=== PATIENT | female | born 2000 | race Caucasian/White ===

== ENCOUNTER 2020-05-19 10:12 | Outpatient (CLI) | payer BC, SELFPAY ==
--- NOTE | ~2020-05-19 | XR_ITS ---
EXAMINATION: XR shoulder RT min 2V DATE: 05/19/2020 10:37 INDICATION: Right shoulder pain. TECHNIQUE: 4 views of right shoulder were obtained. COMPARISON: None. FINDINGS: Bone alignment is normal. No fracture. Joint spaces are normal. IMPRESSION: 1. Normal right shoulder. Reviewed, dictated and finalized at location A. H SCIENCES PROFESSOR IMPRESSION: 1. Normal right shoulder.
== END 2020-05-19 10:13 | disposition home or self-care (01) ==
PROVIDERS: PCP Internal Medicine; Visit Provider Internal Medicine
DX: M25.511 Pain in right shoulder (principal)
CPT/HCPCS: 73030

== ENCOUNTER 2020-05-23 08:09 | Outpatient (CLI) | payer BC, SELFPAY ==
--- NOTE | ~2020-05-23 | XR_ITS ---
XR wrist RT w scaphoid 05/23/2020 08:27 Indication: Chronic right wrist pain Procedure: 5 views right wrist Comparison: No prior studies for comparison. Findings: No fracture or traumatic malalignment. Normal anatomic alignment. Scaphoid within normal li mits. No foreign bodies. Normal anatomic alignment. Impression: 1: No acute fracture. Reviewed, dictated and finalized at location A. ICAL PHARMACIST Impression: 1: No acute fracture.
== END 2020-05-23 08:10 | disposition home or self-care (01) ==
LOC: ANHIMG 08:13
PROVIDERS: PCP Internal Medicine; Visit Provider Surgery Plastic and Reconstructive Surgery
DX: M25.531 Pain in right wrist (principal)
CPT/HCPCS: 73110

== ENCOUNTER 2020-05-30 15:00 | Outpatient (CLI) | payer BC, SELFPAY ==
--- NOTE | ~2020-05-30 | US_ITS ---
EXAMINATION: US joint non vasc comp RT DATE: 05/30/2020 15:30 INDICATION: Mass at the lateral right shoulder TECHNIQUE: Multiple grayscale and Doppler ultrasound images of the region of concern at the lateral r ight shoulder were obtained. COMPARISON: Radiographs dated 05/19/2020 FINDINGS: Normal appearance to the subcutaneous fat and underlying musculature at the region of concern. No abn ormal mass or fluid collections identified. IMPRESSION: 1. No abnormal masses, fluid collections or other etiology identified for reported palpable abnormali ty at the lateral right shoulder. Reviewed, dictated and finalized at location A. ATRIC CLINICAL DIETICIAN IMPRESSION: 1. No abnormal masses, fluid collections or other etiology identified for repor shayla palpable abnormality at the lateral right shoulder.
== END 2020-05-30 15:01 | disposition home or self-care (01) ==
PROVIDERS: PCP Internal Medicine; Visit Provider Internal Medicine
DX: R22.41 Localized swelling, mass and lump, right lower limb (principal)
CPT/HCPCS: 76881

== ENCOUNTER 2020-06-18 00:56 | Outpatient (CLI) | payer BC, SELFPAY ==
[2020-06-18 18:59] LABS: SARS-CoV-2 RNA PCR Negative
== END 2020-06-18 00:57 | disposition home or self-care (01) ==
LOC: ANHCOVIDDT 00:56
PROVIDERS: PCP Internal Medicine; Visit Provider Surgery Plastic and Reconstructive Surgery
DX: Z01.812 Encounter for preprocedural laboratory examination (principal); Z20.828 Contact with and (suspected) exposure to other viral communicable diseases
CPT/HCPCS: 87635; C9803; U0003

== ENCOUNTER 2020-06-21 01:53 | Day surgery (SDC) | payer BC, SELFPAY ==
[2020-06-10 14:56] VITALS: BMI 22.3
[2020-06-21 12:45] VITALS: BP 132/74; PULSE 75; RESP 14; TEMP 36.7; O2SAT 100
[2020-06-21 13:05] VITALS: BMI 22.1
--- NOTE | 2020-06-21 13:23 | SUR.PREOP ---
1315; DURING IV START. PT BECAME DIAPHORETIC AND FAINTED. HOB FLAT, PT COMFORTED. IVF WIDE OPEN. PT THEN AWAKE AND ALERT. RESP EVEN UNLABORED. PT PALE. 1320; DR JACOBS AT BEDSIDE. INFORMED PT FAINTED DURING IV INSERTION. PT STATES SHE FEELS FINE NOW.
--- NOTE | 2020-06-21 13:23 | WPDANESEPPF ---
Anes - Initial Pre Proc Eval Procedure: Operation Date: 06/21/20 14:30 Proposed Procedures p Excision Ganglion Cyst Right Dorsal Wrist - Duncan Garsia MD Date/Time: 06/21/20 13:23 Surgeon: Duncan Garsia MD Pre Op Diagnosis: ganglion cyst right dorsal wrist Patient Data Age: 19 Gender: F Height: 1.7 m Weight: 64.63 kg Allergies Allergy/AdvReac Type Severity Reaction Status Date / Time No Known Allergies Allergy Verified 06/21/20 13:06 Home Medications Medication Instructions Recorded Confirmed Type sertraline 100 mg tablet 100 mg PO DAILY 05/19/20 06/21/20 History docusate sodium 100 mg capsule 100 mg PO BID 7 Days #14 cap 06/15/20 Rx hydrocodone 5 mg-acetaminophen 325 1 tablet PO Q6H PRN #15 tablet 06/15/20 06/15/20 Rx mg tablet ondansetron HCl 4 mg tablet 4 mg PO Q6H PRN #30 tablet 06/15/20 Rx Patient hx anesthesia problems: none Family hx anesthesia problems: none PMFSH Past Medical History Medical History BMI 22.0-22.9, adult Encounter for routine adult health examination with abnormal findings Encounter to establish care Exposure to COVID-19 virus Ganglion cyst of dorsum of right wrist Mass of shoulder region Right shoulder pain Family History Family History Grandparent Family history of thyroid disease Hypertension Family history of arthritis Family history of malignant neoplasm of breast Mother Family history of thyroid disease Father Hypertension Social History Social History Smoking status: Never smoker Alcohol intake: current Living arrangements: alone Gender identity (if verbalized by the patient): Female Spiritual care concerns: No Anes - Eval Final PreProcedure Day of Procedure 06/21/20 13:23 Patient weight: normal Heart: regular rate and rhythm Lungs: clear to auscultation and normal air movement Airway: Mallampati scale class II Neurological: alert and oriented Last oral intake: >/= 8 hours ASA classification: II Emergent: no Anesthetic plan: proceed Anesthesia type and monitoring: general GIVS and standard monitoring Informed Consent: The patient's anesthetic plan and its attendant risks and benefits were discussed with the patient/family/POA. Questions were solicited and answers provided to the satisfaction of the patient/family/POA.
[2020-06-21] MEDS: LACTATED RINGERS 1,000 ML 30 ML IV CONT (13:27)
--- NOTE | 2020-06-21 13:39 | SUR.PREOP ---
PT AWAKE AND ALERT. IV SLOWED DOWN. HOB ELEVATED. PT STATES SHE FEELS FINE. PT P,W,D.
--- NOTE | 2020-06-21 14:51 | SUR.PREOP ---
PT UPDATED. DR MYERS DELAYED 1 HOUR.
--- NOTE | 2020-06-21 14:54 | WPDHPUPDATE1 ---
History and Physical Update Update Date/Time: 06/21/20 14:54 History and Physical has been reviewed, including an updated exam of the patient. There are NO changes in the patient's condition. Risks, benefits, and alternatives have been discussed and questions answered. Patient agrees to proceed with procedure.
--- NOTE | 2020-06-21 15:17 | PM.PROC ---
Procedure Note - Detailed Date of procedure: 06/21/20 Pre-op diagnosis: ganglion cyst right dorsal wrist Post-op diagnosis: same Procedure performed: Excision right dorsal wrist ganglion Description of procedure: Patient was marked in the preoperative holding area with her verification. She was taken to the operating room placed supine on the operating room table. Anesthesia was provided by anesthesiology and prepped and draped in standard sterile fashion. Surgical time-out was taken. 1% lidocaine and 0.25% Marcaine with epinephrine was used anesthetize locally in Esmarch was used to exsanguinate the arm. Tourniquet inflated to 250 mmHg. A 15 blade used to make an incision directly over the mass. Dissection was continued down until the mass was identified. I followed this to the joint space and was completely removed. Tourniquet was released and a verified hemostasis. I closed with 5 0 nylon. Xeroform fluffs Elie and an Han were used for final dressing. She was awoke and taken to the PACU without difficulty. All instrument sponge counts were correct at the end of the case. Anesthesia: GLMA Surgeon: Duncan Garsia MD Estimated blood loss (mL): 5 Drains: No Packing: No Pathology: yes (Ganglion cyst) Complications: No immediate complications Condition: stable Disposition: PACU Findings: Right dorsal wrist mass/ synovitis. No evidence of neurovascular, tendon, or ligamentous injury.
[2020-06-21] MEDS: ceFAZolin 2 GM/D5W 50 ML 2 GM/50 ML BAG IVPB (15:43)
[2020-06-21] MEDS: KETOROLAC 30 MG/ML VIAL (*BKC) IV PUSH (16:05)
[2020-06-21] MEDS: LIDO 1%/EPINEPHRINE 1:100,000 20 ML VIAL 5 ML INFILTRATE (16:05)
[2020-06-21 16:18] VITALS: BP 101/59; PULSE 86; RESP 20
[2020-06-21 16:45] VITALS: BP 99/46; PULSE 78; RESP 20
[2020-06-21 17:15] VITALS: BP 104/56; PULSE 56; RESP 20
== END 2020-06-21 17:25 | disposition home or self-care (01) ==
PROVIDERS: PCP Internal Medicine; Visit Provider Surgery Plastic and Reconstructive Surgery
PROC: (CPT 25111; principal; 2020-06-21 14:30)
DX: M67.431 Ganglion, right wrist (principal)
CPT/HCPCS: 25111; 88304; 88305; J0690; J1885; J2250; J2405; J2704; J3010; J7120

== ENCOUNTER 2020-10-14 14:43 | Emergency (ER) | payer BC, SELFPAY ==
--- NOTE | 2020-10-14 14:44 | ED.GENADULT ---
HPI - General Adult General Chief complaint: Upper Respiratory Infection Stated complaint: Strep test Time Seen by Provider: 10/14/20 14:44 Source: patient Mode of arrival: ambulatory Limitations: no limitations History of Present Illness HPI narrative: 19-year-old female patient presents to the [facility] with complaints of sore throat for the past 3 days. Denies fever, body aches or chills. Patient states she has had a little bit of a runny nose. 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 Denies needing any Covid testing today. Related Data Home Medications Medication Instructions Recorded Confirmed sertraline 100 mg tablet 100 mg PO DAILY 05/19/20 06/21/20 Allergies Allergy/AdvReac Type Severity Reaction Status Date / Time No Known Allergies Allergy Verified 07/04/20 07:32 Review of Systems Review of Systems: Narrative: CONSTITUTIONAL: Denies fever, chills, or sweats. EYES: Denies visual changes, redness, or discharge. ENT: Denies rhinorrhea, congestion, positive sore throat, denies otalgia. CARDIOVASCULAR: Denies chest pain, palpitations, or edema. RESPIRATORY: Denies cough or dyspnea. GASTROINTESTINAL: Denies abdominal pain, nausea, vomiting, or diarrhea. GENITOURINARY: Denies dysuria or hematuria. SKIN: Denies rash or itching. MUSCULOSKELETAL: Denies back pain, joint pain, or myalgia. NEUROLOGIC: Denies headache, numbness, or weakness. PSYCHIATRIC: Denies anxiety or depression. [facility] Past Medical History Medical History BMI 22.0-22.9, adult Encounter for routine adult health examination with abnormal findings Encounter to establish care Exposure to COVID-19 virus Ganglion cyst of dorsum of right wrist Mass of shoulder region Right shoulder pain Family History Family History Grandparent Family history of thyroid disease Hypertension Family history of arthritis Family history of malignant neoplasm of breast Mother Family history of thyroid disease Father Hypertension Social History Social History Smoking status: Never smoker Alcohol intake: current Gender identity (if verbalized by the patient): Female Spiritual care concerns: No Comments At the time of my signature I agree with nursing past medical history, surgical, social, and family history. There is no relevant family history pertinent to the presenting complaint. Exam Narrative: Exam Narrative: GENERAL: Well-appearing, well-nourished, and in no acute distress. HEAD: Normocephalic, atraumatic. EYES: PERRLA and EOMI. ENT: Nares clear, no rhinorrhea or epistaxis. Mucous membranes moist. Posterior pharynx with some postnasal drip present. No erythema, tonsil enlargement or exudates or lesions are present. Bilateral TMs are clear no erythema or foreign bodies in the canal. NECK: Supple. No lymphadenopathy CHEST: Clear to auscultation. No respiratory distress. HEART: Regular rate and rhythm. No murmur heard. Normal peripheral pulses. ABDOMEN: Soft, nontender, nondistended, normal active bowel sounds. EXTREMITIES: Normal range of motion. No edema. SKIN: Warm, dry, no rash. NEURO: No focal deficits. Alert and oriented x3. Course Vital Signs Vital signs: Vital signs reviewed Medical Decision Making Differential Diagnosis Differential Diagnosis: Differential diagnosis: Viral pharyngitis, pharyngitis, group A strep, infectious mononucleosis, gonococcal pharyngitis, exudative pharyngitis, oral candidiasis. Chronic allergies, postnasal drip, GERD, abscess formation, but glottitis, retropharyngeal abscess formation, or airway obstruction. Notify patient that her rapid strep test today is negative. Discussed with patient and offered her Covid testing however she is declined at this time stating that she gets Covid
[2020-10-14 14:50] VITALS: BP 136/89; PULSE 82; RESP 16; TEMP 37.1; O2SAT 100
== END 2020-10-14 15:20 | disposition home or self-care (01) ==
PROVIDERS: Emergency Provider Nurse Practitioner Family; PCP Internal Medicine
DX: J02.9 Acute pharyngitis, unspecified (principal); F41.9 Anxiety disorder, unspecified
CPT/HCPCS: 87081; 87880; 99213; G0463

== ENCOUNTER 2021-02-28 09:25 | Outpatient (CLI) | payer BC, SELFPAY ==
--- NOTE | ~2021-02-28 | XR_ITS ---
EXAMINATION: XR foot LT min 3V DATE: 02/28/2021 09:52 INDICATION: Left foot pain TECHNIQUE: Dorsoplantar, lateral, and 2 oblique views of the left foot were obtained. COMPARISON: None. FINDINGS: There is mild dorsal soft tissue swelling of the foot. Bone alignment is normal. There is n o fracture. Joint spaces are normal. IMPRESSION: 1. Soft tissue swelling without acute osseous abnormality. Reviewed, dictated and finalized at location A.
== END 2021-02-28 09:26 | disposition home or self-care (01) ==
PROVIDERS: PCP Internal Medicine; Visit Provider Internal Medicine
DX: M79.672 Pain in left foot (principal); M79.89 Other specified soft tissue disorders
CPT/HCPCS: 73630

== ENCOUNTER 2021-07-02 10:26 | Outpatient (CLI) | payer BC, SELFPAY ==
--- NOTE | ~2021-07-02 | MR_ITS ---
EXAMINATION: MR brain IAC wo/w con DATE: 07/02/2021 11:57 INDICATION: Dizziness and giddiness. TECHNIQUE: Magnetic resonance imaging (MRI) of the brain, brainstem, and internal auditory canals was performed without and with 15 mL MultiHance intravenous contrast. Sequences included sagittal and ax ial T1-weighted FSE, axial diffusion-weighted FS EPI, axial T2*-weighted GRE, axial T2-weighted FLAIR Propeller, axial T2-weighted Propeller, small ajqth-sm-syoh coronal FIESTA, small kqowb-nh-offg bharat nal T1-weighted FSE, and small xstrs-fx-jakl axial T1-weighted SPGR. Postcontrast sequences included axial T1-weighted FSE, small mwihw-yd-aklt coronal T1-weighted FSE, and small rrizz-id-sfto axial T1- weighted SPGR. Apparent diffusion coefficient (ADC) maps were created. COMPARISON: None. FINDINGS: There is no intracranial hemorrhage, acute infarction, or abnormal intracranial mass lesion . The ventricles are normal in size. The internal auditory canals and inner and middle ears are elton l. The mastoid air cells are normal. There is mild mucosal thickening in the ethmoid sinuses. The orb its are normal. IMPRESSION: 1. Normal brain. Reviewed, dictated and finalized at location A. STRIAL ENGINEERING TECHNOLOGIST IMPRESSION: 1. Normal brain.
[2021-07-02 11:11] LABS: Estimated Glomerular Filt Rate > 60
== END 2021-07-02 10:27 | disposition home or self-care (01) ==
LOC: ANHIMG 10:37
PROVIDERS: PCP Internal Medicine; Visit Provider Internal Medicine
DX: R42 Dizziness and giddiness (principal); R55 Syncope and collapse
CPT/HCPCS: 70553; A9577

== ENCOUNTER → 2022-09-19 13:46 | Outpatient (CLI) | payer BC, SELFPAY ==
--- NOTE | ~2022-09-19 | US_ITS ---
Pelvic ultrasound. Clinical History: Pelvic pain Technique: Realtime transabdominal scanning of the pelvis was performed. Color flow Doppler and Doppl er spectral analysis were performed. Findings: The uterus is anteverted. The endometrial stripe has a thickness of 8 mm. No focal mass is identified. The right ovary measures 3.1 x 2.2 x 2.5 cm. No significant right ovarian or adnexal mass is seen. The left ovary measures 3.2 x 1.7 cm. No significant left ovarian or adnexal mass is seen. There is no evidence of free fluid in the cul de sac. Impression: Unremarkable pelvic ultrasound. Reviewed, dictated and finalized at location . Impression: Unremarkable pelvic ultrasound.
== END ==
PROVIDERS: PCP Advanced Practice Midwife; Visit Provider Advanced Practice Midwife
DX: R10.2 Pelvic and perineal pain (principal)
CPT/HCPCS: 76856

== ENCOUNTER → 2023-03-29 12:53 | Outpatient (CLI) | payer BC, SELFPAY ==
--- NOTE | ~2023-03-29 | US_ITS ---
EXAMINATION: US OB <= 14 weeks fetus DATE: 03/29/2023 13:27 INDICATION: Size greater than dates, first trimester TECHNIQUE: Real-time pelvic transabdominal and transvaginal ultrasound was performed. COMPARISON: None. FINDINGS: The uterus measures 13.1 x 8.1 x 9.9 cm. There is an intrauterine gestational sac. A yolk s ac is identified. heart motion is identified measuring 159 beats per minute (bpm) by M-mode Dop pler. The crown rump length measures 4.6 cm, which correlates with an estimated gestational age of 11 weeks and 3 day(s) (+/-) 7 day(s). The right ovary measures 3.7 x 2.8 x 2.4 cm. The left ovary measures 3.4 x 1.6 x 2.0 cm. There is nor mal vascular flow in the ovaries. There is no free fluid in the pelvis. IMPRESSION: 1. Live intrauterine with an estimated gestational age of 11 weeks and 3 day(s) (+/-) 7 day (s) and an estimated delivery date of 10/14/2022. Reviewed, dictated and finalized at location F. IMPRESSION: 1. Live intrauterine with an estimated gestational age of 11 weeks an d 3 day(s) (+/-) 7 day(s) and an estimated delivery date of 10/14/2022.
== END ==
PROVIDERS: PCP Advanced Practice Midwife; Visit Provider Advanced Practice Midwife
DX: O36.63X0 Maternal care for excessive fetal growth, third trimester, not applicable or unspecified (principal)
CPT/HCPCS: 76801

== ENCOUNTER 2023-08-05 15:16 | Outpatient (CLI) | payer OTHER, SELFPAY ==
--- NOTE | ~2023-08-05 | US_ITS ---
EXAMINATION: US OB follow up DATE: 08/05/2023 15:37 INDICATION: Expected size greater than expected for estimated gestational age TECHNIQUE: Real-time ultrasound of the pelvis was performed. The interpreting radiologist was not pre sent for the study. COMPARISON: None. FINDINGS: There is a single living fetus in vertex presentation. The placenta is posterior and not low-lying. heart rate is 142 beats per minute (bpm). The amniotic fluid index is 16.9 cm, which is normal (5th%-95%: 9.2-23.1 cm at 29 weeks estimated gestational age). Cervical length measures approximatel y 4.8 cm. The following biometric data were obtained: BPD: 7.3 cm -> 29 weeks 2 days Head circumference: 28.7 cm -> 31 weeks 4 days Abdominal circumference: 26.2 cm -> 30 weeks 2 days Femur length: 5.6 cm -> 29 weeks 4 days These measurements are concordant. Head circumference to abdominal circumference ratio: 1.10 (normal range 0.97-1.19). Estimated weight: 2509 g (+/-) 226 g or 3 lbs. 5 oz. (+/-) 8 oz. IMPRESSION: 1. Single living fetus in vertex presentation with heart rate of 142 bpm. 2. Normal amniotic fluid index of 16.9 cm. 3. Estimated weight is 45th percentile by Hadlock criteria when 10/15/2023 is used as the estima shayla date of delivery (AZEEM). Please correlate with clinical information or earlier ultrasounds for mos t accurate AZEEM. Reviewed, dictated and finalized at location A. TECH IMPRESSION: 1. Single living fetus in vertex presentation with heart rate of 142 bpm. 2. Normal amniotic fluid index of 16.9 cm. 3. Estimated weight is 45th percentile by Hadlock criteria when 10/15/2023 is used as the estimated date of delivery (AZEEM). Please correlate with clinica l information or earlier ultrasounds for most accurate AZEEM.
== END 2023-08-05 15:17 ==
PROVIDERS: PCP Advanced Practice Midwife; Visit Provider Advanced Practice Midwife
DX: O36.63X0 Maternal care for excessive fetal growth, third trimester, not applicable or unspecified (principal); Z3A.00 Weeks of gestation of pregnancy not specified
CPT/HCPCS: 76816

== ENCOUNTER 2023-09-12 16:24 | Outpatient (CLI) | payer OTHER, SELFPAY ==
[2023-09-12] VITALS (8 sets, daily range): BP systolic 136–159; BP diastolic 84–101; PULSE 69–80; BMI 33.1
[2023-09-12 17:10] LABS: Basophils Percent Auto 0.1 % (0.2-1.2); Eosinophils Absolute Auto 0.1 K/mm3 (0-0.3); Eosinophils Percent Auto 0.7 % (0-4.4); Hematocrit 37.1 % (37.0-47.0); Hemoglobin 12.5 g/dL (12.0-15.0); Immature Granulocyte Absolute 0.09 K/mm3 (0.00-0.031); Immature Granulocyte Percent A 0.7 % (0-0.5); Lymphocytes Absolute Auto 3.31 K/mm3 (0.9-3.2); Lymphocytes Percent Auto 24.2 % (18.3-44.2); Mean Corpuscular HGB Conc 33.7 g/dl (32-36); Mean Corpuscular Hemoglobin 30.3 pg (26-34); Mean Corpuscular Volume 89.8 fl (80-100); Mean Platelet Volume 10.5 fl (7.4-10.4); Monocytes Absolute Auto 1.4 K/mm3 (0.1-0.6); Monocytes Percent Auto 10.3 % (2.6-8.5); Neutrophils Absolute Auto 8.7 K/mm3 (1.3-6.7); Platelet Count Result 260 k/mm3 (150-375); Red Blood Count 4.13 M/mm3 (4.2-5.4); Red Cell Distribution Width 12.2 % (11.5-14.5); White Blood Count 13.7 K/mm3 (4.5-10.0)
[2023-09-12 17:21] LABS: Alanine Aminotransferase 15 U/L (6-35); Albumin Level 3.5 g/dL (3.5-5.1); Alkaline Phosphatase 261 U/L (38-126); Anion Gap 4 mmol/L (8-16); Aspartate Amino Transferase 19 U/L (14-36); Bilirubin,Total 0.5 mg/dL (0.2-1.3); Blood Urea Nitrogen 9 mg/dL (7-17); Calcium 9.4 mg/dL (8.4-10.2); Carbon Dioxide 22 mmol/L (22-30); Chloride 107 mmol/L (98-107); Estimated Glomerular Filt Rate > 60; Glucose 95 mg/dL (65-110); Potassium 3.7 mmol/L (3.4-5.0); Sodium 133 mmol/L (137-145); Uric Acid 4.1 mg/dL (2.5-7.5)
[2023-09-12 17:22] LABS: Creatinine Urine 85.7 mg/dL; Total Protein Urine Random 28 mg/dL; Ur Ttl Prot Creatinine Ratio 0.33 mg/mg (0-0.20)
[2023-09-12 17:23] LABS: Appearance Urine Cloudy (Clear); Bacteria Urine 1+ /hpf; Bilirubin Urine Negative (Negative); Blood Urine Negative (Negative); Color Urine Yellow (Yellow); Glucose Urine UA Negative (Negative); Ketones Urine Negative (Negative); Leukocyte Esterase Ur 1+ LEU/UL (Negative); Need Manual Microscopic Reviewed; Nitrate Urine Negative (Negative); Non Pathogenic Casts 0-2; Protein Urine Trace mg/dL (Negative); RBC Urine 0-2 /hpf (0-2); Specific Grav Ur 1.015 (1.001-1.035); Squamous Epithelial Cell Urine Occasional /hpf (Few)
[2023-09-12 17:24] LABS: Add Urine Microscopic? YES
[2023-09-12] MEDS: MULTIVIT/MIN/PREN/FOL AC/IRON TABLET 1 TAB PO (19:28)
[2023-09-12] MEDS: ASPIRIN 81 MG CHEWABLE TABLET PO (20:08)
[2023-09-13 02:09] VITALS: BP 153/89; PULSE 87
--- NOTE | 2023-09-13 04:34 | PC.NURSE ---
Dr. Fowler at bedside discussing plan of care with patient, gave pt option on going home on bedrest with 24 hour urine or staying until 24 hour urine is done. pt states she would like to go home. pt education done on signs and symptoms to report, no questions at this time.
--- NOTE | 2023-09-13 04:37 | P.PNOB_ITS ---
OB - Triage/Final Diagnosis Visit Information Date of evaluation: 09/13/23 Reason for evaluation: other (PIH) Comments/Additional reasons for admission: I have assessed the risk for this patient, Sydni Hawthorne, and determined that she would benefit from observation care. Patient sent from office with BP 158/98, 162/102 and complaint of headache. Evaluation Baseline heart rate: 130 (reactive) monitor accelerations: Present monitor decelerations: None Laboratory results: Laboratory Tests 09/12/23 09/12/23 16:49 16:58 WBC 13.7 H RBC 4.13 L Hgb 12.5 Hct 37.1 MCV 89.8 MCH 30.3 MCHC 33.7 RDW 12.2 Plt Count 260 MPV 10.5 H Immature Gran % (Auto) 0.7 H Neut % (Auto) 64.0 Lymph % (Auto) 24.2 [place] % (Auto) 10.3 H Eos % (Auto) 0.7 Baso % (Auto) 0.1 L Lymph # (Auto) 3.31 H [place] # (Auto) 1.4 H Eos # (Auto) 0.1 Baso # (Auto) 0.0 Abs Immat Gran (auto) 0.09 H Absolute Neuts (auto) 8.7 H Absolute Nucleated RBC 0.000 Nucleated RBC % 0.0 Sodium 133 L Potassium 3.7 Chloride 107 Carbon Dioxide 22 Anion Gap 4 L BUN 9 Creatinine 0.50 L Estim Creat Clear Calc Not Reportable Estimated GFR > 60 Glucose 95 Uric Acid 4.1 Calcium 9.4 Total Bilirubin 0.5 AST 19 ALT 15 Alkaline Phosphatase 261 H Total Protein 7.0 Albumin 3.5 Urine Color Yellow Urine Appearance Cloudy H Urine pH 7.0 Ur Specific [place] 1.015 Urine Protein Trace Urine Glucose (UA) Negative Urine Ketones Negative Ur Blood (Man) Negative Urine Nitrate Negative Urine Bilirubin Negative Urine Urobilinogen 1.0 Add Ur Microanalysis Reviewed Leukocyte Esterase Rfl 1+ H Urine RBC 0-2 Urine WBC 6-10 H Ur Squamous Epith Cells Occasional Urine Bacteria 1+ H Urine Casts 0-2 U Random Total Protein 28 Urine Creatinine 85.7 Protein/Creat Ratio 2 0.33 H Vital signs: Vital Signs - 24 hr 09/12/23 17:01 09/12/23 17:15 09/12/23 17:31 Pulse Rate 76 73 73 Blood Pressure 146/97 H 147/101 H 142/94 H Blood Pressure [Left Arm] 09/12/23 17:45 09/12/23 19:01 09/12/23 20:08 Pulse Rate 80 78 78 Blood Pressure 159/90 H 141/85 H 136/84 Blood Pressure [Left Arm] 09/12/23 21:57 09/12/23 17:26 09/13/23 02:09 Pulse Rate 69 76 87 Blood Pressure 141/88 H 153/89 H Blood Pressure [Left Arm] 146/97 H Final Diagnosis (1) PIH ( induced hypertension): Code(s): O13.9 - Gestational [-induced] hypertension without significant proteinuria, unspecified trimester Status: Acute Plan: Will dc home to complete 24 hour urine as BP's in mild range and labs normal. Will remain on bedrest with BRP. Will plan NST's 2x/wk and weekly visits
== END 2023-09-13 05:00 | disposition home or self-care (01) ==
LOC: ANHOBOP 16:30 → ANHOBPP 16:39
PROVIDERS: PCP Internal Medicine; Visit Provider Obstetrics & Gynecology Gynecology
DX: O13.9 Gestational [pregnancy-induced] hypertension without significant proteinuria, unspecified trimester (principal)
CPT/HCPCS: 36415; 59025; 80053; 81050; 82570; 82575; 84156; 84550; 85025; 87086; 99199; A9270

== ENCOUNTER 2023-09-13 16:17 | Outpatient (CLI) | payer OTHER, SELFPAY ==
[2023-09-13 16:28] VITALS: BMI 33.1
[2023-09-13 16:45] VITALS: BP 142/93; PULSE 80
[2023-09-13 17:00] VITALS: BP 132/89; PULSE 84
[2023-09-13 17:02] LABS: Collection Time Urine 24 HOURS
[2023-09-13 17:07] LABS: Total Volume 24 Hour Urine 1600 ml
[2023-09-13 17:10] LABS: Creatinine Urine 83.7 mg/dL; Patient Weight 211 Lbs; Total Protein Urine 24 Hr 272 mg/24hr (28-141); Total Protein Urine Random 17 mg/dL
[2023-09-13 17:12] VITALS: BP 132/89; PULSE 82
[2023-09-13 17:26] LABS: Creatinine Clearance Urine 156.1 ml/min (75-125); Serum Creat 0.5
== END 2023-09-13 17:00 | disposition home or self-care (01) ==
LOC: ANHOBOP 16:27 → ANHOBPP 16:27
PROVIDERS: PCP Internal Medicine; Visit Provider Obstetrics & Gynecology Gynecology
DX: O13.9 Gestational [pregnancy-induced] hypertension without significant proteinuria, unspecified trimester (principal)
CPT/HCPCS: 59025; 81050; 82575; 84156; 99199

== ENCOUNTER 2023-09-14 22:21 | Outpatient (CLI) | payer OTHER, SELFPAY ==
[2023-09-14] VITALS (13 sets, daily range): BP systolic 140–168; BP diastolic 89–103; PULSE 90–103; O2SAT 98–100
--- NOTE | 2023-09-14 22:21 | OBADM ---
This patient, Sydni Hawthorne, admitted to the OB room 117 for observation. Patient/family oriented to hospital policies and general routines including ID bracelet, bed and alarms, visiting hours, pain management, procedures, bathroom and other care routines, personal items, smoking policy, room service/diet, and visiting hours. Patient/Family are encouraged to report perceived risks to care and to ask questions if they do not understand what they are told or what they should do.
--- NOTE | 2023-09-14 22:47 | PC.NURSE ---
RN phoned MD due to pt arrival on unit and notified MD of maternal and status. RN notified MD of pt c/o high blood pressures at home. RN also notified MD of blood pressures that were taken at the hospital upon arrival. MD okay with blood pressures and after a reactive NST pt can be discharged to home. RN discussed plan of care with pt. Pt agrees with plan of care.
== END 2023-09-14 23:20 | disposition home or self-care (01) ==
LOC: ANHOBOP 22:29 → ANHOBPP 09-19 06:29
PROVIDERS: PCP Internal Medicine; Visit Provider Obstetrics & Gynecology Gynecology
DX: O13.9 Gestational [pregnancy-induced] hypertension without significant proteinuria, unspecified trimester (principal); Z3A.00 Weeks of gestation of pregnancy not specified
CPT/HCPCS: 59025; 99199

== ENCOUNTER 2023-09-19 14:01 | Outpatient (CLI) | payer OTHER, SELFPAY ==
--- NOTE | ~2023-09-19 | US_ITS ---
EXAMINATION: US OB follow up, US umbilical doppler DATE: 09/19/2023 14:31 INDICATION: Preeclampsia TECHNIQUE: Real-time ultrasound of the pelvis was performed. The interpreting radiologist was not pre sent for the study. COMPARISON: None. FINDINGS: There is a single living fetus in vertex presentation. The placenta is posterior and not low-lying. heart rate is 126 beats per minute (bpm). The amniotic fluid index is 18.0 cm, which is normal (5th%-95%: 7.7-24.9 cm at 36 weeks estimated gestational age). The following biometric data were obtained: BPD: 8.8 cm -> 35 weeks 4 days Head circumference: 31.4 cm -> 35 weeks 1 days Abdominal circumference: 31.7 cm -> 35 weeks 4 days Femur length: 7.0 cm -> 35 weeks 5 days These measurements are concordant. Head circumference to abdominal circumference ratio: 0.99 (normal range 0.93-1.09). Estimated weight: 2714 g (+/-) 407 g or 6 lbs. 0 oz. (+/-) 14 oz. The umbilical artery demonstrates a peak systolic and diastolic velocity ratio of 3.0 at the fetus, 2 .0 in the mid cord and 2.2 near the placenta (5th%-95%: 1.98-3.29 at 36 weeks). IMPRESSION: 1. Single living fetus in vertex presentation with heart rate of 126 bpm. 2. Normal amniotic fluid index of 18.0 cm. 3. Estimated weight is 33rd percentile by Hadlock criteria when 10/15/2023 is used as the estima shayla date of delivery (AZEEM). Please correlate with clinical information or earlier ultrasounds for mos t accurate AZEEM. 4. Normal umbilical artery peak systolic to diastolic velocity ratios of 2.0-3.0. Reviewed, dictated and finalized at location A. IMPRESSION: 1. Single living fetus in vertex presentation with heart rate of 126 bpm. 2. Normal amniotic fluid index of 18.0 cm. 3. Estimated weight is 33rd percentile by Hadlock criteria when 10/15/2023 is used as the estimated date of delivery (AZEEM). Please correlate with clinica l information or earlier ultrasounds for most accurate AZEEM. 4. Normal umbilical artery peak systolic to diastolic velocity ratios of 2.0-3. 0.
== END 2023-09-19 14:02 ==
LOC: MICIMG 14:02
PROVIDERS: PCP Obstetrics & Gynecology Gynecology; Visit Provider Obstetrics & Gynecology Gynecology
DX: O14.13 Severe pre-eclampsia, third trimester (principal)
CPT/HCPCS: 76816; 76820

== ENCOUNTER 2023-09-20 10:02 | Outpatient (CLI) | payer OTHER, SELFPAY ==
[2023-09-20 10:28] LABS: Basophils Percent Auto 0.2 % (0.2-1.2); Eosinophils Absolute Auto 0.1 K/mm3 (0-0.3); Eosinophils Percent Auto 0.8 % (0-4.4); Hematocrit 39.6 % (37.0-47.0); Hemoglobin 13.4 g/dL (12.0-15.0); Immature Granulocyte Absolute 0.09 K/mm3 (0.00-0.031); Immature Granulocyte Percent A 0.8 % (0-0.5); Lymphocytes Percent Auto 22.9 % (18.3-44.2); Mean Corpuscular HGB Conc 33.8 g/dl (32-36); Mean Corpuscular Hemoglobin 30.5 pg (26-34); Mean Platelet Volume 10.5 fl (7.4-10.4); Monocytes Absolute Auto 0.9 K/mm3 (0.1-0.6); Monocytes Percent Auto 7.3 % (2.6-8.5); Platelet Count Result 259 k/mm3 (150-375); Red Cell Distribution Width 12.4 % (11.5-14.5); White Blood Count 11.8 K/mm3 (4.5-10.0)
[2023-09-20 10:30] VITALS: BP 133/76; PULSE 99
[2023-09-20 10:39] LABS: Alanine Aminotransferase 15 U/L (6-35); Albumin Level 3.6 g/dL (3.5-5.1); Alkaline Phosphatase 274 U/L (38-126); Anion Gap 5 mmol/L (8-16); Aspartate Amino Transferase 21 U/L (14-36); Bilirubin,Total 0.4 mg/dL (0.2-1.3); Blood Urea Nitrogen 9 mg/dL (7-17); Calcium 9.3 mg/dL (8.4-10.2); Carbon Dioxide 22 mmol/L (22-30); Chloride 107 mmol/L (98-107); Estimated Glomerular Filt Rate > 60; Glucose 114 mg/dL (65-110); Potassium 3.8 mmol/L (3.4-5.0); Sodium 134 mmol/L (137-145); Uric Acid 5.3 mg/dL (2.5-7.5)
[2023-09-20 10:45] VITALS: BP 146/93; PULSE 100
[2023-09-20 10:51] VITALS: BMI 33.7
[2023-09-20 10:52] LABS: Appearance Urine Cloudy (Clear); Bacteria Urine 4+ /hpf; Bilirubin Urine Negative (Negative); Blood Urine Non-Hemolyzed Trace (Negative); Color Urine Yellow (Yellow); Glucose Urine UA Negative (Negative); Ketones Urine Negative (Negative); Leukocyte Esterase Ur 2+ LEU/UL (Negative); Need Manual Microscopic Reviewed; Nitrate Urine Negative (Negative); Protein Urine 1+ mg/dL (Negative); Specific Grav Ur 1.019 (1.001-1.035); Squamous Epithelial Cell Urine Few /hpf (Few); WBC Urine 21-50 /hpf (0-3)
[2023-09-20 10:58] LABS: Creatinine Urine 128.4 mg/dL; Total Protein Urine Random 22 mg/dL; Ur Ttl Prot Creatinine Ratio 0.17 mg/mg (0-0.20)
[2023-09-20 11:00] VITALS: BP 143/86; PULSE 90
[2023-09-20 11:02] LABS: Add Urine Microscopic? YES
--- NOTE | 2023-09-20 11:05 | PC.NURSE ---
Called Dr. Fowler with pt status. Informed of BPs, lab results and reactive NST. Orders received. October D/C home with Keflex for UTI.
== END 2023-09-20 11:20 | disposition home or self-care (01) ==
LOC: ANHOBOP 10:06 → ANHOBPP 10:09
PROVIDERS: PCP Obstetrics & Gynecology Gynecology; Visit Provider Obstetrics & Gynecology Gynecology
DX: O13.9 Gestational [pregnancy-induced] hypertension without significant proteinuria, unspecified trimester (principal); Z3A.00 Weeks of gestation of pregnancy not specified
CPT/HCPCS: 36415; 59025; 80053; 82570; 84156; 84550; 85025; 87086; 87088; 99199

== ENCOUNTER 2023-09-24 10:21 | Outpatient (CLI) | payer OTHER, SELFPAY ==
[2023-09-24 10:45] VITALS: BP 137/93; PULSE 80
[2023-09-24 10:59] VITALS: BP 140/98; PULSE 75
== END 2023-09-24 11:10 | disposition home or self-care (01) ==
LOC: ANHOBOP 10:25 → ANHOBPP 10:26
PROVIDERS: PCP Internal Medicine; Visit Provider Obstetrics & Gynecology Gynecology
DX: O41.8X90 Other specified disorders of amniotic fluid and membranes, unspecified trimester, not applicable or unspecified (principal)
CPT/HCPCS: 59025; 84112; 99199

== ENCOUNTER 2023-09-30 05:47 | Inpatient (IN) | payer OTHER, SELFPAY ==
[2023-09-30] VITALS (77 sets, daily range): BP systolic 102–263; BP diastolic 47–237; PULSE 47–211; RESP 16–20; TEMP 36.2–37.2; O2SAT 92–100; BMI 33.1
--- NOTE | 2023-09-30 06:53 | LDADM ---
This patient, Sydni Evans [facility], was admitted to Labor/Delivery/Recovery 104 on 09/30/23 at 05:47. Plans for labor, pain management and were discussed with patient. Patient/family oriented to hospital policies and general routines including ID bracelet, bed and alarms, visiting hours, pain management, procedures, bathroom and other care routines, personal items, smoking policy, room service/diet and guest tray routines, security routines, and visiting hours. Patient/Family are encouraged to report perceived risks to care and to ask questions if they do not understand what they are told or what they should do. See OBIX for further documentation.
--- NOTE | 2023-09-30 07:06 | P.PNAN_ITS ---
Anes - Eval Pre Procedure Procedure: labor epidural Date/Time: 09/30/23 07:06 Surgeon: arabella Preop Diagnosis: pain during labor Pre Op Diagnosis: IOL Patient Data Age: 22 Gender: F Height: Weight: Allergies Allergy/AdvReac Type Severity Reaction Status Date / Time No Known Allergies Allergy Verified 09/12/23 18:45 Home Medications Medication Instructions Recorded Confirmed Type cephalexin 500 mg capsule 500 mg PO TID 5 days #15 caps 09/20/23 Rx aspirin 81 mg tablet 81 mg PO 09/23/23 History cholecalciferol (vitamin D3) 1,250 1,250 mcg PO WEEKLY 09/23/23 09/23/23 History mcg (50,000 unit) tablet nifedipine 30 mg tablet,extended 30 mg PO DAILY 09/23/23 09/23/23 History release prenat.vits,denise,mpl-rcij-oulta tablet 09/23/23 History Patient hx anesthesia problems: none Family hx anesthesia problems: none Results Review: All pre-operative results and documents have been reviewed as part of the pre- operative evaluation. PMFSH Past Medical History Medical History (Updated 09/30/23 @ 07:06 by Aracelis Serna CRNA) IUP (intrauterine ), incidental Family History Family History (Updated 09/23/23 @ 12:39 by Mikayla Limon RN) Father Hypertension Sibling Bradycardia Social History Social History Substance use: never Spiritual care concerns: No Exam Day of Procedure 09/30/23 07:06
[2023-09-30 07:14] LABS: Basophils Percent Auto 0.2 % (0.2-1.2); Eosinophils Absolute Auto 0.1 K/mm3 (0-0.3); Eosinophils Percent Auto 1.3 % (0-4.4); Hematocrit 38.6 % (37.0-47.0); Hemoglobin 12.7 g/dL (12.0-15.0); Immature Granulocyte Absolute 0.09 K/mm3 (0.00-0.031); Immature Granulocyte Percent A 0.8 % (0-0.5); Lymphocytes Absolute Auto 3.28 K/mm3 (0.9-3.2); Lymphocytes Percent Auto 29.8 % (18.3-44.2); Mean Corpuscular HGB Conc 32.9 g/dl (32-36); Mean Corpuscular Hemoglobin 30.2 pg (26-34); Mean Corpuscular Volume 91.9 fl (80-100); Mean Platelet Volume 10.4 fl (7.4-10.4); Monocytes Percent Auto 9.3 % (2.6-8.5); Neutrophils Absolute Auto 6.5 K/mm3 (1.3-6.7); Neutrophils Percent Auto 58.6 % (45.5-73.1); Platelet Count Result 264 k/mm3 (150-375); Red Cell Distribution Width 12.7 % (11.5-14.5)
[2023-09-30 07:30] LABS: Alanine Aminotransferase 14 U/L (6-35); Albumin Level 3.6 g/dL (3.5-5.1); Alkaline Phosphatase 343 U/L (38-126); Anion Gap 3 mmol/L (4-12); Aspartate Amino Transferase 20 U/L (14-36); Bilirubin,Total 0.5 mg/dL (0.2-1.3); Blood Urea Nitrogen 7 mg/dL (7-17); Calcium 9.6 mg/dL (8.4-10.2); Carbon Dioxide 23 mmol/L (22-30); Chloride 106 mmol/L (98-107); Estimated Glomerular Filt Rate > 60; Glucose 82 mg/dL (65-110); Potassium 3.7 mmol/L (3.4-5.0); Sodium 132 mmol/L (137-145); Uric Acid 4.7 mg/dL (2.5-7.5)
[2023-09-30] MEDS: OXYTOCIN 30 UNITS/NS 500 ML 30 UNITS/500 ML BAG 6 UNITS IV CONT (07:30)
[2023-09-30] MEDS: LACTATED RINGERS 1,000 ML 125 ML IV CONT ×2 (07:30→10:20)
[2023-09-30] MEDS: AMPICILLIN 2 GM/NS 100 ML 2 GM/100 ML BAG IVPB (08:21)
--- NOTE | 2023-09-30 08:53 | WPDOBADMIT ---
Obstetrics - Admit Note Admission Note: record reviewed. No pertinent additions to the history and/or any subsequent changes in the physical findings that are not consistent with the expected course of the were found. Additions to the history and/or subsequent changes in the physical findings follow. The patient is admitted for medical induction of labor secondary to preeclampsia. Blood pressures remain in the mild range. heart tones are category 1. Cervix 2/90/-1 AROM with clear fluid
[2023-09-30] MEDS: fentaNYL CITRATE INJ (*CRX) 100 MCG/2 ML VIAL IV PUSH (10:20)
--- NOTE | 2023-09-30 11:51 | P.PCNOB_ITS ---
OB - Vaginal Delivery Note Procedure Delivery date: 09/30/23 Events: Preeclampsia w/o severe features Intrapartal Events: Decelerations (terminal bradycardia) Induction method: AROM and Per Pitocin Protocol Delivery monitor: External FHT and External Uterine Route of delivery: forceps (Outlet forceps over 1 contraction) Indication for instrumentation: nonreassuring FHR tracing (FHTs 50-80's with occ increase to 90's) Episiotomy description: None Laceration Description: Perineal - 2nd Degree Delivery repair: vicryl (3-0) Specimen: Yes (placenta) Quantitative Blood Loss (ml): 250 Anesthesia type: Epidural Disposition: Floor Complications: No immediate complications [place] Baby Date of : 09/30/23 Weeks of gestation at delivery: 36 (36 5/7) gender: Female Weight (pounds): 7 Weight (ounces): 7 presentation: vertex position: Right Occiput Anterior Placenta delivery description: Spontaneous Cord Vessel Description: 3 Vessels, Delayed Cord Clamping and Around Body (around shoulder then body) score one minute: 7 score five minutes: 9
--- NOTE | 2023-09-30 11:53 | PM.OBDSVD ---
DS: Admitting Diagnosis Discharge Date 10/02/23 Admitting Diagnosis IUP 36 5/7 wks preeclampsia MIL DS: Discharge Diagnosis Discharge Diagnosis (1) (normal spontaneous vaginal delivery): Code(s): O80 - Encounter for full-term uncomplicated delivery Status: Acute (2) Preeclampsia: Code(s): O14.90 - Unspecified pre-eclampsia, unspecified trimester Status: Acute OB - DS: Summary OB Procedures : NST, PIH Mgmt and Ultrasound OB Procedures Intrapartum: Forceps (outlet) OB Procedures: : None Peripartum Data Infant Delivery Method: Assisted Delivery Laceration Description: Perineal - 2nd Degree Episiotomy description: None complications: none Status at Discharge Functional status at discharge: independent ambulation Overall status at discharge: patient is progressing back to baseline Time Spent with Patient Time attestation: Total time spent providing and/or coordinating discharge services: DS: Data Data Completed and Pending Labs on day of discharge: Labs from last 24 hours 09/30/23 09/30/23 07:05 07:05 WBC 11.0 H RBC 4.20 Hgb 12.7 Hct 38.6 MCV 91.9 MCH 30.2 MCHC 32.9 RDW 12.7 Plt Count 264 MPV 10.4 Immature Gran % (Auto) 0.8 H Neut % (Auto) 58.6 Lymph % (Auto) 29.8 [place] % (Auto) 9.3 H Eos % (Auto) 1.3 Baso % (Auto) 0.2 Lymph # (Auto) 3.28 H [place] # (Auto) 1.0 H Eos # (Auto) 0.1 Baso # (Auto) 0.0 Abs Immat Gran (auto) 0.09 H Absolute Neuts (auto) 6.5 Absolute Nucleated RBC 0.000 Nucleated RBC % 0.0 Sodium 132 L Potassium 3.7 Chloride 106 Carbon Dioxide 23 Anion Gap 3 L BUN 7 Creatinine 0.50 L Estim Creat Clear Calc Not Reportable Estimated GFR > 60 Glucose 82 Uric Acid 4.7 Cancelled Calcium 9.6 Total Bilirubin 0.5 AST 20 ALT 14 Alkaline Phosphatase 343 H Total Protein 7.0 Albumin 3.6 RPR Pending Blood Type AB Positive Antibody Screen Negative Discharge Plan Discharge Attending physician on discharge: Samantha Fowler Consulting providers: Tete Ospina; Aracelis Sernaege,Akash E. Jr. Discharging Clinician: Tete Ospina Anticipated Discharge Date/Time: 10/02/23 11:54 Patient Disposition: Home, Self-Care Activity: may shower Diet: regular Discharge Instructions: Education: Mom and Baby Guide Given to: Mother Follow-Up: Call your delivering provider's office for an appointment to be seen in: 1 Week Mom and baby should come to the [facility] for the follow-up appointment. Appointment Date/Time: September at 11:00 am What to expect at your follow-up visit: Physical Assessment Call [phone] if you are unable to keep your appointment time. BREAST CARE: * Wear a snug supportive bra. * For engorgement discomfort: Bottle Feeding: * May apply ice packs PERINEAL CARE: * Until bleeding stops, use your vicky bottle after urinating * Change your pad frequently throughout the day * You may take sitz baths several times a day (fill your bathtub with warm water and soak for 20 minutes.) Do NOT bathe in the water * No tub baths until seen by your physician - You may shower ACTIVITY: * Rest as much as possible. * Do not exercise or lift anything heavier than your baby (such as laundry or other children.) * Avoid stairs or driving as much as possible. * Do not put anything into the vagina. No douching, tampons, or sexual activity until seen by physician. NOTIFY PHYSICIAN IF YOU HAVE ANY QUESTIONS OR IF ANY OF THE FOLLOWING SYMPTOMS OCCUR: * If your episiotomy or incision becomes red, swollen, or more painful than what you have experienced in the hospital. * If your vaginal bleeding becomes foul smelling. * If your vaginal bleeding becomes more heavy than a period or if your bleeding changes from pink to bright red. However,
[2023-09-30] MEDS: OXYTOCIN 30 UNITS/NS 500 ML 30 UNITS/500 ML BAG 125 UNITS IV CONT (12:24)
[2023-09-30] MEDS: BENZOCAINE 20% AER SPR (*SP) 56 GM CAN 1 SPRAY TOPICAL (14:43)
[2023-09-30] MEDS: WITCH HAZEL 40 PADS 1 PAD TOPICAL (14:43)
[2023-09-30 15:31] LABS: Rapid Plasma Reagin Non-Reactive (NonReactive)
[2023-09-30] MEDS: DOCUSATE SODIUM 100 MG CAPSULE PO (16:15)
[2023-09-30] MEDS: IBUPROFEN 600 MG TABLET PO (16:15)
--- NOTE | 2023-09-30 16:17 | OBPPTRN ---
Patient transferred to post room #284 via wheelchair, baby in crib at bedside. Her partner David present. Oriented to unit, room, information board, rooming in, admission packet and security measures. Patient verbalizes understanding.
[2023-09-30] MEDS: ACETAMINOPHEN 325 MG TABLET 650 MG PO (21:00)
[2023-10-01 03:20] VITALS: BP 140/82; PULSE 79; RESP 18; TEMP 36.6; O2SAT 97
[2023-10-01 04:45] LABS: Hematocrit 30.3 % (37.0-47.0); Hemoglobin 9.8 g/dL (12.0-15.0)
[2023-10-01] MEDS: IBUPROFEN 600 MG TABLET PO ×3 (05:49→19:15)
--- NOTE | 2023-10-01 07:42 | PM.OBPNVD ---
OB - PN: Subj Subjective Date/time seen: 10/01/23 07:42 Patient comments: no complaints and pain well controlled baby status: doing well OB - PN: Obj Data Labs 10/01/23 03:14 09/30/23 07:05 Labs: Laboratory Results - last 24 hr 09/30/23 10/01/23 07:05 03:14 Hgb 9.8 L Hct 30.3 L RPR Non-reactive Blood Type AB Positive Antibody Screen Negative OB - PN A/P Assessment and Plan (1) Preeclampsia: Code(s): O14.90 - Unspecified pre-eclampsia, unspecified trimester Status: Acute Assessment and Plan: BP improved off meds no diuresis yet no symptoms Plan day: 1 Plan: routine care Time Spent With Patient Time: Total time spent is greater than 50% in coordination of care (as documented) at patient's floor/unit and/or counseling patient: Exam : Bimanual exam- vagina & uterus: other (Uterus firm, nt @U)
[2023-10-01 07:45] VITALS: BP 129/86; PULSE 72; RESP 16; TEMP 37.1; O2SAT 99
[2023-10-01] MEDS: ACETAMINOPHEN 325 MG TABLET 650 MG PO ×2 (07:53→15:10)
[2023-10-01] MEDS: POLYSACCHARIDE IRON COMPLEX 150 MG CAPSULE PO ×2 (07:53→15:10)
[2023-10-01] MEDS: DOCUSATE SODIUM 100 MG CAPSULE PO (07:53)
--- NOTE | 2023-10-01 08:14 | WPDANLDPN2 ---
Anes-Prog Note L&D Date/Time: 10/01/23 08:14 Comfortable throughout: labor and delivery Neuraxial method: epidural Epidural/Spinal procedure site: clean & non-tender Neuro status: Neuro function grossly intact. Cardiovascular status: normal Respiratory status: normal Airway patency: baseline Mental status: baseline Post-Op hydration status: normal Vital Signs: Last Vital Signs Temp 97.9 F 10/01/23 03:20 Pulse 79 10/01/23 03:20 Resp 18 10/01/23 03:20 BP 140/82 10/01/23 03:20 Pulse Ox 97 10/01/23 03:20 O2 Del Method Room Air 10/01/23 07:59 Pain score (VAS): 0/10 I/O: Intake & Output 09/30/23 10/01/23 10/01/23 23:59 07:59 15:59 Intake Total 400 1100 Output Total 250 1000 Balance 150 100 Post-procedural complaints: none Patient feedback: Patient satisfied with anesthetic care.
[2023-10-01 12:30] VITALS: BP 132/89; PULSE 82; RESP 16; TEMP 36.6; O2SAT 98
[2023-10-01 15:14] VITALS: BP 136/94
[2023-10-01 19:50] VITALS: BP 132/88; PULSE 79; RESP 16; TEMP 37.1; O2SAT 98
[2023-10-01] MEDS: BENZOCAINE 20% AER SPR (*SP) 56 GM CAN 1 SPRAY TOPICAL (19:55)
[2023-10-01] MEDS: WITCH HAZEL 40 PADS 1 PAD TOPICAL (19:55)
[2023-10-02 00:52] VITALS: BP 124/74; PULSE 77
[2023-10-02 05:07] VITALS: BP 117/74; PULSE 71
--- NOTE | 2023-10-02 07:47 | PM.OBPNVD ---
OB - PN: Subj Subjective Date/time seen: 10/02/23 07:20 Interval history: Doing well. Urinating without difficulty. Denies passing any large clots. Denies dizziness with ambulating. Tolerating po food and fluids. Bonding with . Patient comments: pain well controlled [place] baby status: doing well and bottle feeding well [place] feeding status: exclusively bottle feeding OB - PN: Obj Data Labs 10/01/23 03:14 09/30/23 07:05 OB - PN A/P Assessment and Plan (1) Preeclampsia: Qualifiers: Trimester: third trimester Qualified Code(s): O14.93 - Unspecified pre-eclampsia, third trimester Code(s): O14.90 - Unspecified pre-eclampsia, unspecified trimester Status: Acute (2) (normal spontaneous vaginal delivery): Code(s): O80 - Encounter for full-term uncomplicated delivery Status: Acute Plan day: 2 Time Spent With Patient Time: Total time spent is greater than 50% in coordination of care (as documented) at patient's floor/unit and/or counseling patient: Time with patient: less than 15 minutes Review of Systems Review of Systems: All systems reviewed & are unremarkable except as noted in HPI and below Exam Narrative: Alert and oriented. Mood is pleasant and cooperative. Perineum with minimal edema. Fundus firm and below umbilicus. Const: General: cooperative, healthy appearing, no acute distress and alert Orientation/consciousness: patient oriented x3 Limitations: no limitations Resp: Effort & Inspection: normal respiratory effort and able to speak in complete sentences Auscultation: clear to auscultation bilaterally Cardio: Rate: regular rate GI: Inspection: normal to inspection Auscultation: normal bowel sounds : General: Yes bladder normal to palpation External Female Exam: other (lochia WNL) Bimanual exam- vagina & uterus: bladder normal to palpation Other: Fundus firm and below U Skin: General skin exam: normal color and no rashes or lesions noted Neuro: General: patient oriented x3 and moves all extremities Cognition (Neuro): normal cognition Extrem: General: normal to inspection and no calf tenderness Psych: Appearance: grossly normal Mental Status: mental status grossly normal Affect: normal affect Thought process: Normal thought process present
[2023-10-02 07:54] VITALS: BP 156/111; PULSE 68; RESP 16; TEMP 36.4; O2SAT 100
--- NOTE | 2023-10-02 09:37 | PC.NURSE ---
On 10/02/23, the student, Paz Kim, provided care and completed [facility] documentation on this patient. I have reviewed the student's documentation and agree with the findings.
[2023-10-02 09:43] VITALS: BP 132/87
[2023-10-02] MEDS: DOCUSATE SODIUM 100 MG CAPSULE PO (09:53)
[2023-10-02] MEDS: IBUPROFEN 600 MG TABLET PO (09:53)
[2023-10-02] MEDS: POLYSACCHARIDE IRON COMPLEX 150 MG CAPSULE PO (09:53)
--- NOTE | 2023-10-02 10:05 | PC.NURSE ---
On 10/02/23, the student, Paz Kim, provided care and completed [facility] documentation on this patient. I have reviewed the student's documentation and agree with the findings. Paz rechecked pt's BP d/t an elevated result initially received at 0754. Student stated that the pt just returned from walking around in the room when the first BP of 156/111 was taken.
[2023-10-02] MEDS: MEASLES,MUMPS,RUBELLA VACCINE 0.5 ML VIAL SUB-Q (11:18)
[2023-10-02 12:07] VITALS: BP 146/91; PULSE 72; RESP 16; TEMP 37; O2SAT 100
[2023-10-03 11:10] VITALS: BP 139/89; PULSE 72; RESP 18; TEMP 36.7; O2SAT 99
== END 2023-10-02 16:02 | disposition home or self-care (01) | DRG 807 ==
LOC: ANHLDR 11:55 → ANHOB2 15:27
PROVIDERS: Admitting Provider Obstetrics & Gynecology Gynecology; PCP Internal Medicine; Visit Provider Obstetrics & Gynecology Gynecology
DX: O14.04 Mild to moderate pre-eclampsia, complicating childbirth (principal); Z37.0 Single live birth; Z3A.36 36 weeks gestation of pregnancy; O60.14X0 Preterm labor third trimester with preterm delivery third trimester, not applicable or unspecified; O70.1 Second degree perineal laceration during delivery; O13.4 Gestational [pregnancy-induced] hypertension without significant proteinuria, complicating childbirth; O62.3 Precipitate labor; O36.8330 Maternal care for abnormalities of the fetal heart rate or rhythm, third trimester, not applicable or unspecified; O69.82X0 Labor and delivery complicated by other cord entanglement, without compression, not applicable or unspecified
CPT/HCPCS: 36415; 80053; 84550; 85014; 85018; 85025; 86592; 86850; 86900; 86901; 88307; 90710; A9270; J0290; J2590; J3010; J7120

== ENCOUNTER 2023-12-23 13:43 | Outpatient (CLI) | payer OTHER, SELFPAY ==
--- NOTE | ~2023-12-23 | US_ITS ---
US transvaginal Ordering provider: Yue Livingston, VOLUNTEER RECRUITER History: . PELVIC FULLNESS . Comparison: September 19, 2023 Technique: Transabdominal and endovaginal ultrasound of the pelvis (Doppler ultrasound interrogation techniques used as needed for this exam.) FINDINGS: CERVIX: Normal. UTERUS: Measures 8.7x 4.4x 2.8 cm in length which is within normal limits and is anteverted. No myom etrial masses. Follicles are seen. ENDOMETRIUM: Normal in thickness measuring 8 mm. (Note: the premenopausal endometrium may measure up to 16 mm when in the secretory phase.) No endometrial masses, cysts or fluid. CUL DE SAC: No free fluid. RIGHT OVARY: Normal in size measuring 2.6x 1.3x 1.9 CM. Normal echotexture. Doppler vascular flow pre sent. Follicles are noted with the largest measures 1.4 cm. LEFT OVARY: Normal in size measuring 2.6x 1.3x 1.9 CM. Normal echotexture. Doppler vascular flow pres ent. Follicles are noted. ADNEXA: Normal. No mass. IMPRESSION: normal pelvic ultrasound. Reviewed, dictated and finalized at location A. IMPRESSION: normal pelvic ultrasound.
== END 2023-12-23 13:44 ==
PROVIDERS: PCP Nurse Practitioner; Visit Provider Nurse Practitioner
DX: R19.09 Other intra-abdominal and pelvic swelling, mass and lump (principal)
CPT/HCPCS: 76830

== ENCOUNTER 2025-06-04 14:40 | Outpatient (CLI) | payer OTHER, SELFPAY ==
--- NOTE | ~2025-06-04 | US_ITS ---
EXAMINATION: US OB /maternal detail DATE: 06/04/2025 15:25 INDICATION: survey TECHNIQUE: Multiple obstetric sonographic images performed. FINDINGS: No prior studies for comparison. There is a single living fetus in vertex presentation. The placenta is anterior without placenta previa. Placental margin to the cervix is 3.4 cm. Cervical length 4.1 cm. Amniotic fluid volume is subjectively normal. cardiac activity and movement is noted with a heart rate of 161 beats per minute. The following anatomy was identified as normal: 4 chamber heart 3 vessel cord cord insertion kidneys urinary bladder stomach spine diaphragm ventricles cisterna magna cerebellum The following biometric data were obtained: BPD: 43mm corresponds to gestational age 19 weeks 0 days. Head circumference: 164 mm corresponds to gestational age 19 weeks 1 days. Abdominal circumference: 147 mm corresponds to gestational age 20 weeks 0 days. Femur length: 34 mm corresponds to gestational age 20 weeks 4 days. Head circumference to abdominal circumference ratio: 1.11 (normal range for expected gestational age is 1.08-1.26). Estimated weight: 332 grams +/- 50 grams using Hadlock method. IMPRESSION: 1: Single living intrauterine with an estimated gestational age of 19weeks 5days by current ultrasound measurements, with an EDC of 10/24/2025 in vertex presentation. 2. Normal survey. Reviewed, dictated and finalized at location I. AST INSPECTOR IMPRESSION: 1: Single living intrauterine with an estimated gestational age of 19 weeks 5days by current ultrasound measurements, with an EDC of 10/24/2025 in duane david presentation. 2. Normal survey.
== END 2025-06-04 14:41 | disposition home or self-care (01) ==
LOC: MICIMG 14:41
PROVIDERS: PCP Obstetrics & Gynecology Gynecology; Visit Provider Obstetrics & Gynecology Gynecology
DX: Z36.9 Encounter for antenatal screening, unspecified (principal)
CPT/HCPCS: 76805